=== PATIENT | male | born 2000 | race Caucasian/White ===

== ENCOUNTER 2023-12-06 14:02 | Outpatient (AMB) | payer OTHER, SELFPAY ==
--- NOTE | 2023-12-06 14:04 | A.OFFPC_ITS ---
Vital Signs 12/06/23 14:07 Height 5 ft 6 in Weight 222 lb BMI 35.8 BP 130/84 Blood Pressure Location Rt brachial Position Sitting Pulse 103 H Pulse Source Pulse Oximeter Pulse Oximetry (%) 98 Oxygen Delivery Method Room Air Intake Visit Reasons: Follow up/Asthma Intake Note: Patient here to follow up on Asthma. Pt would like to discuss possibly having diabetes, their is a family hx of it on both sides and mom has checked sugars several times at home with her supplies and pt has had elevated FBS. Allergies No Known Allergies Allergy (Verified 12/06/23 17:18) Medication List - Last Reconciled 12/06/23 by SAMSON Arritea-MARISOL albuterol sulfate 90 mcg/actuation 2 puffs inhalation Q6H PRN montelukast 10 mg PO DAILY Tobacco use date assessed: 12/06/23 Dental Screening Dental Screen Date: 12/06/23 Did you have a dental visit in the last 12 months?: No Did you have a dental problem in the last 6 months where you did not have access to dental care?: No Was dental information given to patient?: Patient has dentist HPI Follow up/Asthma HPI Details asthma: pt reports his asthma has been fairly well controlled. He does not like the maintenance inhalers. He reports using albuterol bid, and does not want anything else. 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 #2 mom in room with pt, pt's mom reported he wasnt feeling well a months or so ago, sugars were in the 200s+. A1c today was 5.3, encouraged pt to get labs#3 pt reported chest pressure , that started in the Winter after shoveling (left lateral pectoral region). He reports the pain can be more exacerbated with movement, does not radiate, not associated with exertion. There is also a anxiety component. Will get a EKG. #4 depression/anxiety: denies any SI or HI. Having opal () speak with pt. ETOH abuse: approx 6 beers a night. Opal () will speak with pt about treatment options [facility] Medical History (Updated 12/06/23 @ 17:16 by SAMSON Arrieta-MARISOL) Smoker Fracture of left wrist Pilonidal cyst Family History Father Substance use disorder Mental health disorder Hypertension Diabetes Asthma High cholesterol Paternal Grandmother Substance use disorder Hypertension Diabetes COPD (chronic obstructive pulmonary disease) Sister Mental health disorder Mother Hyperthyroidism Paternal Grandfather Hypertension Diabetes Renal failure treated with peritoneal dialysis Melanoma Maternal Grandfather Diabetes Hypertension COPD (chronic obstructive pulmonary disease) Stroke Lung cancer Maternal Grandmother Hypertension Lung cancer Social History Housing: House Patient Tobacco Use Status: Current everyday Tobacco user Cigarettes Per Day: 1 e-Cigarette/Vaping Use: Currently Using service: No Current occupational status: employed Current occupation: [employer] Current occupational exposures/hazards: Yes Cognitive needs: No Hearing needs: No Vision needs: No Questionnaire PHQ-9 Over the last 2 weeks, how often have you been bothered by any of the following problems? 1. Little interest or pleasure in doing things: several days 2. Feeling down, depressed, or hopeless: several days 3. Trouble falling or staying asleep, or sleeping too much: several days 4. Feeling tired or having little energy: several days 5. Poor appetite or overeating: not at all 6. Feeling bad about yourself - or that you are a failure or have let yourself or your family down: several days 7. Trouble concentrating on things, such as reading the newspaper or watching television: several days 8. Moving or speaking so slowly that other people could have noticed. Or the opposite - being so fidgety or restless that you have been moving around a lot more than usual: not at all 9. Thoughts that you would be better off or of hurting yourself in some way: several days Total score: 7 Source: Developed by Drs. Hollis Gan, Sadaf Ramos, Mike Abbott and colleagues, with an educational christine from [employer]. Thrive Questionnaire Date Thrive assessed: 12/06/23 I am a: Patient What is your living situation today?: I have a steady place to live Within the past 12 months, did the food you bought not last and you didn't have the money to get more?: Never true Within the past 12 months, did you worry whether your food would run out before you got money to buy more?: Never true Do you have trouble paying for medicines?: No Do you have trouble getting transportation to medical appointments?: No Do you have trouble paying your heating and electricity bill?: No Do you have trouble taking care of your child, family member or friend?: No Do you have trouble with day-to-day activities such as bathing, preparing meals, shopping, managing finances, etc.?: No Are you currently unemployed and looking for a job?: No Are you interested in more education?: No Please select the resources that you would like help with: Housing/Nursing Home Currently or been in a relationship where the following occur: No concerns reported THRIVE Score: 0 AUDIT C Alcohol Use Questionnaire (AUDIT-C) 1. How often do you have a drink containing alcohol?: 4 or more times a week 2. How many drinks containing alcohol do you have on a typical day when you are drinking?: 3 or 4 3. How often do you have six or more drinks on one occasion?: Less than monthly Total Score: 6 CATHLEEN-7 AMB Questionnaire CATHLEEN-7 Date CATHLEEN - 7 assessed: 07/19/22 Feeling nervous, anxious, or on edge: 1 = Several days Not being able to stop or control worryin = Several days Worrying too much about different things: 1 = Several days Trouble relaxin = Several days Being so restless that it is hard to sit still: 0 = Not at all Becoming easily annoyed or irritable: 1 = Several days Feeling afraid as if something awful might happen: 1 = Several days Total CATHLEEN-7 score (0-4 normal; 5-9 mild; 10-14 moderate; 15-21 severe): 6 Source: Developed by Drs. Hollis Gan, Sadaf Ramos, Mike Abbott and colleagues, with an educational christine from [employer]. ACT Questionnaire In the past 4 weeks, how much of the time did your asthma keep you from getting as much done at work, school or at home?: Some of the time During the past 4 weeks, how often have you had shortness of breath?: Once a day During the past 4 weeks, how often did your asthma symptoms wake you up at night or earlier than usual in the morning?: Not at all During the past 4 weeks, how often have you had to use your rescue inhaler or nebulizer medication?: 1-2 times a week How would you rate your asthma control during the past 4 weeks?: Somewhat controlled Score: 15 Physical exam (Primary Care) Vital Signs: Last Vital Signs Pulse 103 H 12/06/23 14:07 BP 130/84 12/06/23 14:07 Pulse Ox 98 12/06/23 14:07 Oxygen Delivery Method Room Air 12/06/23 14:07 BMI result Body Mass Index 35.8 Tobacco/Smoking Status: Tobacco use Status Tobacco use date assessed 12/06/23 12/06/23 14:16 Patient Tobacco Use Status Current everyday Tobacco 12/06/23 14:06 e-Cigarette/Vaping Use Currently Using 12/06/23 14:06 PHQ-9: PHQ-9 Score PHQ-9: Total score 7 12/06/23 14:55 Thrive Assessment: Date of Thrive Assessment Date Thrive assessed 12/06/23 12/06/23 14:06 Currently or been in a relationship where the following occur: No concerns reported Const General: cooperative Resp Other: clear though very scattered faint upper wheezes Cardio Rate: regular rate Rhythm: regular rhythm Heart sounds: S1 normal heart sound present and S2 normal heart sound present Back/Spine/Pelvis Other: no pain exacerbated with turning upper torso side to side. No pain with palpation of left upper chest. Psych Appearance: well kempt Speech and movement: Normal speech and movement present Affect: normal affect Attitude: cooperative Thought process: Normal thought process present Thought content: Normal thought content present Results AMB Hemoglobin A1c AMB Hemoglobin A1c 5.3 % Last Edit by JESUS MANUEL See on 12/06/23 14 :57 Results Reviewed Results Reviewed: Laboratory Last Values Hgb A1c (Clinic) 5.3 % (4.0-6.0) 12/06/23 14:55 Assessment and Plan Assessment & Plan (1) Asthma: Code(s): J45.909 - Unspecified asthma, uncomplicated Plan: does not want anymore inhalers. encouraged to quit smoking Pt knows to follow up if symptoms become worse. Any severe symptoms to call 911 or seek immediate medical attention. (2) Depression: Code(s): F32.A - Depression, unspecified Plan: spoke with provider today (Opal). Pt does not want to start any meds. (3) Anxiety: Code(s): F41.9 - Anxiety disorder, unspecified Plan: pt is thinking about options (spoke with opal). denies any si or hi, does not want any medications for this. (4) ETOH abuse: Code(s): F10.10 - Alcohol abuse, uncomplicated Plan: opal spoke with pt (5) Chest discomfort: Code(s): R07.89 - Other chest pain Plan: EKG was benign. Appears to be more muscular Orders: Orders AMB EKG-In Office Today R07.89 - Other chest pain Complete Blood Count Auto Diff Today J45.909 - Unspecified asthma, unc omplicated Comprehensive [place]. Panel Fast Today J45.909 - Unspecified asthma, uncomplicated TSH reflex Free T4 Today J45.909 - Unspecified asthma, uncomplicated UA CC w/rflx Micro + Cult Today J45.909 - Unspecified asthma, uncomplicated Lipid Panel Today J45.909 - Unspecified asthma, uncomplicated AMB Hemoglobin A1c Today Z13.9 - Encounter for screening, unspecified Medications: Discontinued sertraline Discontinued Reason: Patient Refused 25 mg PO BEDTIME 30 days 30 tabs 2RF Coding Level of Care Code Est Pt Level 4 (81791) Diagnoses Asthma J45.909 Depression F32.A Anxiety F41.9 ETOH abuse F10.10 Chest discomfort R07.89
[2023-12-06 14:07] VITALS: BP 130/84; PULSE 103; O2SAT 98; BMI 35.8
== END 2023-12-06 16:51 | disposition home or self-care (01) ==
PROVIDERS: PCP Nurse Practitioner Family; Visit Provider Nurse Practitioner Family
DX: J45.909 Unspecified asthma, uncomplicated (principal); F32.A Depression, unspecified; F41.9 Anxiety disorder, unspecified; F10.10 Alcohol abuse, uncomplicated; R07.89 Other chest pain; R73.09 Other abnormal glucose
CPT/HCPCS: 83036; 99214

== ENCOUNTER 2024-04-20 13:56 | Outpatient (REF) | payer OTHER, SELFPAY ==
[2024-04-20 15:16] LABS: MANUAL DIFF FLAG NO
[2024-04-20 15:17] LABS: Basophils Absolute Auto 0.1 X10*3/uL (0.0-0.2); Basophils Percent Auto 0.9 % (0-2); Eosinophils Absolute Auto 0.4 X10*3/uL (0.0-0.4); Eosinophils Percent Auto 4.1 % (0-4); Hematocrit 43.8 % (42.0-52.0); Hemoglobin 16.2 g/dl (14.0-18.0); Imm Gran Abs Auto 0.02 X10*3/uL (0.00-0.03); Imm Gran Pct Auto 0.2 % (0.0-0.4); Lymphocytes Absolute Auto 1.9 X10*3/uL (1.2-4.9); Lymphocytes Percent Auto 21.8 % (20-40); Mean Corpuscular Hemoglobin 31.7 pg (27.0-33.0); Mean Corpuscular Volume 85.7 fL (80.0-98.0); Mean Platelet Volume 10.2 fL (9.4-12.4); Monocytes Absolute Auto 0.7 X10*3/uL (0.1-1.2); Monocytes Percent Auto 8.6 % (2-11); Neutrophils Absolute Auto 5.5 x10*3/uL (2.0-8.3); Neutrophils Percent Auto 64.4 % (45-73); Platelet Count 227 X10*3/uL (160-400); Red Blood Count 5.11 X10*6/uL (4.60-5.80); Red Cell Distribution Width 12.7 % (11.0-16.0); White Blood Count 8.6 X10*3/uL (4.8-10.8)
[2024-04-20 15:39] LABS: Alanine Aminotransferase 42 U/L (0-40); Albumin Level 4.5 g/dL (3.5-5.0); Anion Gap 17 (12-20); Aspartate Amino Transferase 44 U/L (5-37); Bilirubin Total 0.3 mg/dL (0.0-1.0); Blood Urea Nitrogen 17 mg/dL (9-16); Calcium 9.3 mg/dL (8.4-10.2); Carbon Dioxide 23 mmol/L (22-29); Chloride 104 mmol/L (96-108); Cholesterol 142 mg/dL (<200); Estimated Glomerular Filt Rate > 60; Glucose Fasting 97 mg/dL (60-99); HDL Cholesterol 52 mg/dL (>40); LDL Cholesterol Calculated 69 mg/dL (<100); Potassium 3.6 mmol/L (3.3-5.1); Sodium 140 mmol/L (135-145); Total Protein 7.4 g/dL (6.5-8.0); Triglycerides 107 mg/dL (<150)
[2024-04-20 15:58] LABS: TSH reflex Free T4 2.76 uIU/mL (0.32-4.0)
[2024-04-20 16:45] LABS: Alkaline Phosphatase 69 U/L (39-117)
== END 2024-04-20 13:57 | disposition home or self-care (01) ==
LOC: HO.HMGCLDS 13:56
PROVIDERS: PCP Nurse Practitioner Family; Visit Provider Nurse Practitioner Family
DX: J45.909 Unspecified asthma, uncomplicated (principal)
CPT/HCPCS: 36415; 80053; 80061; 84443; 85025

== ENCOUNTER 2024-04-23 07:24 | Outpatient (AMB) | payer OTHER, SELFPAY ==
--- NOTE | 2024-04-23 07:15 | A.OFFVIS_ITS ---
Intake Visit Reasons: med follow up Allergies No Known Allergies Allergy (Verified 12/06/23 17:18) HPI HPI med follow up: Details: anxiety and depression: on sertraline 25mg for approx 3 months, reports much benefit from this med. Especially reports less anxiety with getting out in society. Recent labs performed, appears liver enzymes are only mildly elevated...will get a ABD US. Sounds as though his diet has been off. Dneies any CP, SOB, abd pains, n/v, SI or HI. [facility] Medical History (Updated 04/23/24 @ 07:17 by JAYMIE Arrieta) Smoker Fracture of left wrist Pilonidal cyst Family History Father Substance use disorder Mental health disorder Hypertension Diabetes Asthma High cholesterol Paternal Grandmother Substance use disorder Hypertension Diabetes COPD (chronic obstructive pulmonary disease) Sister Mental health disorder Mother Hyperthyroidism Paternal Grandfather Hypertension Diabetes Renal failure treated with peritoneal dialysis Melanoma Maternal Grandfather Diabetes Hypertension COPD (chronic obstructive pulmonary disease) Stroke Lung cancer Maternal Grandmother Hypertension Lung cancer Social History Housing: House Patient Tobacco Use Status: Current everyday Tobacco user Cigarettes Per Day: 1 e-Cigarette/Vaping Use: Currently Using service: No Current occupational status: employed Current occupation: [employer] Current occupational exposures/hazards: Yes Cognitive needs: No Hearing needs: No Vision needs: No Review of Systems Const Reports as per HPI Physical Exam Const General: cooperative, healthy appearing, comfortable, no acute distress and well developed Orientation/consciousness: patient oriented x3 Limitations: no limitations Neuro General: patient oriented x3 Psych Appearance: grossly normal Mental Status: mental status grossly normal Speech and movement: Normal speech and movement present Affect: normal affect Attitude: cooperative Thought process: Normal thought process present Thought content: Normal thought content present Insight: Good insight present (Psych) Judgement: Good judgement present (Psych) Telehealth Telehealth [facility]health [facility] Location of provider rendering services: practice address Location of patient: address on file Patient Identification confirmed using: Name, : Yes Telehealth method: video Patient verbally consented to treatment: Yes Patient verbally consented to billing insurance company: Yes Patient informed of any privacy concerns related to visit: Yes Minutes spent on Phone/Video with Pt.: 10 Assessment & Plan Assessment & Plan (1) Elevated liver enzymes: Code(s): R74.8 - Abnormal levels of other serum enzymes Category: Medical Plan: ABD US ordered (2) Depression: Code(s): F32.A - Depression, unspecified Category: Medical Plan: doing excellent on the sertraline 25mg (3) Anxiety: Code(s): F41.9 - Anxiety disorder, unspecified Category: Medical Plan: doing excellent on the sertraline 25mg Plan . Orders: Orders US abdomen complete Today R74.8 - Abnormal levels of other serum enzymes Hepatitis A,B,C Profile Today R74.8 - Abnormal levels of other serum enzymes Medications: Refilled sertraline 25 mg PO DAILY 90 tabs 4RF Coding Level of Care Code Tele Est Pt Level 3 (98079) Diagnoses Elevated liver enzymes R74.8 Depression F32.A Anxiety F41.9
== END 2024-04-23 08:13 | disposition home or self-care (01) ==
LOC: HO.HMCC 07:24
PROVIDERS: PCP Nurse Practitioner Family; Visit Provider Nurse Practitioner Family
DX: R74.8 Abnormal levels of other serum enzymes (principal); F32.A Depression, unspecified; F41.9 Anxiety disorder, unspecified

== ENCOUNTER 2024-12-24 12:35 | Outpatient (REF) | payer OTHER, SELFPAY ==
[2024-12-24 16:38] LABS: Iron 124 mcg/dL (45-160); Percent Iron Saturation 37 % (15-50); Total Iron Binding Capacity 332 mcg/dL (228-428); Unsaturated Iron Binding 208 ug/dL
[2024-12-24 16:57] LABS: Ferritin 175 ng/mL (20-250)
[2024-12-25 08:33] LABS: HBS Num1 0.84 mIU/mL (0-7.99); HBc Num1 0.06 S/CO (0.00-0.79); HBsAGNum1 0.39 S/CO (0.00-0.99); Hepatitis A Antibody IgM 0.18 Index (0-0.79); Hepatitis B Surface Antigen Negative (Negative); ~HepC Num1 0.07 S/CO (0.00-0.79); ~Hepatitis A Antibody IgM Nonreactive (Nonreactive); ~Hepatitis B Surface Antibody NONREACTIVE (Nonreactive); ~Hepatitis C Antibody Nonreactive (Nonreactive)
== END 2024-12-24 12:36 | disposition home or self-care (01) ==
LOC: HO.HMGCLDS 12:35
PROVIDERS: PCP Nurse Practitioner Family; Visit Provider Nurse Practitioner Family
DX: Z11.59 Encounter for screening for other viral diseases (principal); E61.1 Iron deficiency; E55.9 Vitamin D deficiency, unspecified; R74.8 Abnormal levels of other serum enzymes
CPT/HCPCS: 36415; 82306; 82728; 83540; 86704; 86706; 86709; 86803; 87340

== ENCOUNTER 2024-12-26 16:06 | Outpatient (AMB) | payer OTHER, SELFPAY ==
[2024-12-26 16:22] VITALS: BP 122/78; PULSE 97; RESP 16; O2SAT 98; BMI 38.2
--- NOTE | 2024-12-26 16:22 | MHC.PC.OV ---
Vital Signs 12/26/24 16:22 Height 5 ft 6 in Weight 237 lb BMI 38.2 BP 122/78 Blood Pressure Location Lt brachial Position Sitting Respiration 16 Pulse 97 Pulse Source Pulse Oximeter Pulse Oximetry (%) 98 Oxygen Delivery Method Room Air Intake Visit Reasons: PE Allergies No Known Allergies Allergy (Verified 12/26/24 16:55) Medication List - Last Reconciled 12/26/24 by JAYMIE Arrieta Advair Diskus 100-50 mcg/dose (fluticasone propion-salmeterol) 1 ea PO BID NS albuterol sulfate 90 mcg/actuation 2 puffs inhalation Q6H PRN montelukast 10 mg PO DAILY sertraline 50 mg PO DAILY Tobacco use date assessed: 12/26/24 Dental Screening Dental Screen Date: 12/26/24 Did you have a dental visit in the last 12 months?: No Did you have a dental problem in the last 6 months where you did not have access to dental care?: No Was dental information given to patient?: Patient has dentist [facility] Medical History (Updated 12/26/24 @ 16:37 by JAYMIE Arrieta) Smoker Fracture of left wrist Pilonidal cyst Family History Father Substance use disorder Mental health disorder Hypertension Diabetes Asthma High cholesterol Paternal Grandmother Substance use disorder Hypertension Diabetes COPD (chronic obstructive pulmonary disease) Sister Mental health disorder Mother Hyperthyroidism Paternal Grandfather Hypertension Diabetes Renal failure treated with peritoneal dialysis Melanoma Maternal Grandfather Diabetes Hypertension COPD (chronic obstructive pulmonary disease) Stroke Lung cancer Maternal Grandmother Hypertension Lung cancer Social History Housing: House Patient Tobacco Use Status: Current everyday Tobacco user Cigarettes Per Day: 1 e-Cigarette/Vaping Use: Currently Using service: No Current occupational status: employed Current occupation: [employer] Current occupational exposures/hazards: Yes Cognitive needs: No Hearing needs: No Vision needs: No Questionnaire PHQ-9 Over the last 2 weeks, how often have you been bothered by any of the following problems? 1. Little interest or pleasure in doing things: several days 2. Feeling down, depressed, or hopeless: several days 3. Trouble falling or staying asleep, or sleeping too much: several days 4. Feeling tired or having little energy: several days 5. Poor appetite or overeating: several days 6. Feeling bad about yourself - or that you are a failure or have let yourself or your family down: several days 7. Trouble concentrating on things, such as reading the newspaper or watching television: not at all 8. Moving or speaking so slowly that other people could have noticed. Or the opposite - being so fidgety or restless that you have been moving around a lot more than usual: several days 9. Thoughts that you would be better off or of hurting yourself in some way: not at all Total score: 7 Source: Developed by Drs. Hollis Gan, Sadaf Ramos, Mike Abbott and colleagues, with an educational christine from [employer]. Thrive Questionnaire Date Thrive assessed: 12/06/23 I am a: Patient What is your living situation today?: I have a steady place to live Within the past 12 months, did the food you bought not last and you didn't have the money to get more?: Never true Within the past 12 months, did you worry whether your food would run out before you got money to buy more?: Never true Do you have trouble paying for medicines?: No Do you have trouble getting transportation to medical appointments?: No Do you have trouble paying your heating and electricity bill?: No Do you have trouble taking care of your child, family member or friend?: No Do you have trouble with day-to-day activities such as bathing, preparing meals, shopping, managing finances, etc.?: No Are you currently unemployed and looking for a job?: No Are you interested in more education?: No Please select the resources that you would like help with: None Currently or been in a relationship where the following occur: No concerns reported THRIVE Score: 0 AUDIT C Alcohol Use Questionnaire (AUDIT-C) 1. How often do you have a drink containing alcohol?: 4 or more times a week 2. How many drinks containing alcohol do you have on a typical day when you are drinking?: 1 or 2 3. How often do you have six or more drinks on one occasion?: Less than monthly Total Score: 5 CATHLEEN-7 AMB Questionnaire CATHLEEN-7 Date CATHLEEN - 7 assessed: 07/19/22 Feeling nervous, anxious, or on edge: 1 = Several days Not being able to stop or control worryin = Not at all Worrying too much about different things: 1 = Several days Trouble relaxin = Several days Being so restless that it is hard to sit still: 0 = Not at all Becoming easily annoyed or irritable: 1 = Several days Feeling afraid as if something awful might happen: 1 = Several days Total CATHLEEN-7 score (0-4 normal; 5-9 mild; 10-14 moderate; 15-21 severe): 5 Source: Developed by Drs. Hollis Gan, Sadaf Ramos, Mike Abbott and colleagues, with an educational christine from [employer]. Physical exam (Primary Care) Vital Signs: Last Vital Signs Pulse 97 12/26/24 16:22 Resp 16 12/26/24 16:22 BP 122/78 12/26/24 16:22 Pulse Ox 98 12/26/24 16:22 Oxygen Delivery Method Room Air 12/26/24 16:22 BMI result Body Mass Index 38.2 Tobacco/Smoking Status: Tobacco use Status Tobacco use date assessed 12/26/24 12/26/24 16:27 Patient Tobacco Use Status Current everyday Tobacco 12/26/24 16:27 e-Cigarette/Vaping Use Currently Using 12/26/24 16:27 PHQ-9: PHQ-9 Score PHQ-9: Total score 7 12/26/24 16:27 Thrive Assessment: Date of Thrive Assessment Date Thrive assessed 12/06/23 12/26/24 16:27 Currently or been in a relationship where the following occur: No concerns reported Coding Level of Care Code Est Pt Level 3 (50620) Est Pt Prev Care 18-39y(11990) Diagnoses Encounter for routine adult physical exam with abnormal findings Z00.01 Anxiety F41.9 Depression F32.A ETOH abuse F10.10 Asthma J45.909 Smoker F17.200 Assessment & Plan Assessment & Plan (1) Encounter for routine adult physical exam with abnormal findings: Code(s): Z00.01 - Encounter for general adult medical examination with abnormal findings Category: Medical (2) Anxiety: Code(s): F41.9 - Anxiety disorder, unspecified Category: Medical (3) Depression: Code(s): F32.A - Depression, unspecified Category: Medical (4) ETOH abuse: Code(s): F10.10 - Alcohol abuse, uncomplicated Category: Social Hx (5) Asthma: Code(s): J45.909 - Unspecified asthma, uncomplicated Category: Medical (6) Smoker: Code(s): F17.200 - Nicotine dependence, unspecified, uncomplicated Category: Social Hx Plan . Orders: Orders Comprehensive [place]. Panel Fast Today Z00. - Encounter for general adult medical examination with abnormal findings Complete Blood Count Auto Diff Today Z00. - Encounter for general adult medical examination with abnormal findings TSH reflex Free T4 Today Z00.01 - Encounter for general adult medical examination with abnormal findings UA CC w/rflx Micro + Cult Today Z00.01 - Encounter for general adult medical examination with abnormal findings Lipid Panel Today Z00.01 - Encounter for general adult medical examination with abnormal findings
== END 2024-12-26 16:30 ==
LOC: HO.HMCC 16:06
PROVIDERS: PCP Nurse Practitioner Family; Visit Provider Nurse Practitioner Family
DX: Z00.01 Encounter for general adult medical examination with abnormal findings (principal); F41.9 Anxiety disorder, unspecified; F32.A Depression, unspecified; F10.10 Alcohol abuse, uncomplicated; J45.909 Unspecified asthma, uncomplicated; F17.200 Nicotine dependence, unspecified, uncomplicated

== ENCOUNTER 2025-01-31 10:14 | Outpatient (REF) | payer OTHER, SELFPAY ==
--- NOTE | ~2025-01-31 | US_ITS ---
CLINICAL HISTORY: R74.8 - Abnormal levels of other serum enzymes US abdomen complete Comparison: None provided Findings: The visualized pancreas is not well visualized due to bowel gas. The IVC is normal. Aorta is unremarkable. The liver is normal in size and increased in echogenicity There is no intrahepatic bile duct dilatation. The common duct is 2 mm in diameter. The gallbladder has a polyp within the neck of the gallbladder measuring 5 x 4 x 4 mm. No stones or sludge seen. There is no sonographic Quan sign. The right kidney is 11.3 cm in length. The left kidney is 10.3 cm in length. Both kidneys are normal in echogenicity and there is no hydronephrosis. Normal cortical thickness. The spleen is normal. No ascites. IMPRESSION: 1. 5 mm polyp in the neck of the gallbladder. Gallbladder is otherwise normal. 2. Echogenic liver consistent with diffuse fatty infiltration. 3. Limited visualization of the pancreas. This document has been electronically signed by: Teo Gonzáles MD on 02/01/2025 02:59:37
[2025-01-31 13:25] LABS: MANUAL DIFF FLAG NO
[2025-01-31 13:30] LABS: Hematocrit 44.1 % (42.0-52.0); Hemoglobin 15.8 g/dl (14.0-18.0); Imm Gran Abs Auto 0.03 X10*3/uL (0.00-0.03); Imm Gran Pct Auto 0.4 % (0.0-0.4); Lymphocytes Absolute Auto 1.7 X10*3/uL (1.2-4.9); Mean Corpuscular HGB Conc 35.8 g/dl (31.0-36.0); Mean Corpuscular Hemoglobin 31.3 pg (27.0-33.0); Mean Corpuscular Volume 87.3 fL (80.0-98.0); NRBC Abs Auto 0.000 X10*3/uL (0.0-0.012); NRBC Pct Auto 0.0 /100WBC (0.0-0.2); Platelet Count 201 X10*3/uL (160-400); Red Blood Count 5.05 X10*6/uL (4.60-5.80); White Blood Count 6.8 X10*3/uL (4.8-10.8)
[2025-01-31 14:07] LABS: Alanine Aminotransferase 37 U/L (0-40); Albumin Level 4.6 g/dL (3.5-5.0); Alkaline Phosphatase 62 U/L (39-117); Anion Gap 13 (12-20); Aspartate Amino Transferase 27 U/L (5-37); Blood Urea Nitrogen 13 mg/dL (9-16); Calcium 9.1 mg/dL (8.4-10.2); Carbon Dioxide 27 mmol/L (22-29); Chloride 106 mmol/L (96-108); Cholesterol 146 mg/dL (<200); Estimated Glomerular Filt Rate > 60; HDL Cholesterol 54 mg/dL (>40); Potassium 4.5 mmol/L (3.3-5.1); Sodium 141 mmol/L (135-145); Total Protein 7.2 g/dL (6.5-8.0); Triglycerides 103 mg/dL (<150)
== END 2025-01-31 10:15 | disposition home or self-care (01) ==
LOC: HO.HMGCX 10:14
PROVIDERS: PCP Nurse Practitioner Family; Visit Provider Nurse Practitioner Family
DX: Z00.01 Encounter for general adult medical examination with abnormal findings (principal); R74.8 Abnormal levels of other serum enzymes
CPT/HCPCS: 36415; 76700; 80053; 80061; 84443; 85025

== ENCOUNTER → 2025-01-31 10:18 | Outpatient (BNV) | payer OTHER, SELFPAY | PROVIDERS: PCP Nurse Practitioner Family; Visit Provider Radiology Diagnostic Radiology | DX: K76.0 Fatty (change of) liver, not elsewhere classified (principal) | CPT/HCPCS: 76700 ==